=== PATIENT | female | born 2000 | race Caucasian/White ===

== ENCOUNTER 2021-04-12 20:13 | Emergency (ER) | payer OTHER ==
[~2021-04-12 20:13] MED LIST: BENTYL10 MG PO; FLEXERIL10 MG PO; LIDOCAINE 5% P1 EACH TOP; LITHIUM300 MG PO; PERCOCET 5-3251 EACH PO; SPIRONOLACTONE PO; SPRINTEC 28 DA1 EACH PO; TOPAMAX100 MG PO; VOLTAREN **OUT50 MG PO
== END 2021-04-12 23:02 | disposition home or self-care (01) ==
LOC: FER 20:13
DX: M54.5 Low back pain (principal); G89.29 Other chronic pain; M25.552 Pain in left hip; Z87.39 Personal history of other diseases of the musculoskeletal system and connective tissue; Z87.828 Personal history of other (healed) physical injury and trauma
CPT/HCPCS: 73502; 96372; J1100; J1885